=== PATIENT | female | born 1975 | race Caucasian/White ===

== ENCOUNTER 2016-08-31 17:34 | Emergency (ER) | payer BC, OTHER ==
[2016-08-31] MEDS ORDERED: METOCLOPRAMIDE HCL 5 MG/ML VIAL IM ONE (18:12)
[2016-08-31] MEDS ORDERED: diphenhydrAMINE HCL 50 MG/ML VIAL IM ONE (18:12)
[2016-08-31] MEDS ORDERED: METOCLOPRAMIDE HCL 5 MG/ML VIAL ONE (18:14)
[2016-08-31] MEDS ORDERED: diphenhydrAMINE HCL 50 MG/ML VIAL ONE (18:14)
--- NOTE | 2016-08-31 18:19 | ERNOTE ---
Headache ER HPI - General Presenting Symptoms: "migraine" Time Seen by Provider: 08/31/16 18:05 Source: patient Exam Limitations: no limitations - Immun/Allergies/Home Medications Immunizations: IMMUNIZATION HX Immunizations Up to Date Yes Allergies/Adverse Reactions: Allergies aspirin Allergy (Verified 08/31/16 17:50) latex Allergy (Verified 08/31/16 17:50) propranolol Allergy (Verified 08/31/16 17:50) topiramate Allergy (Verified 08/31/16 17:50) - History of Present Illness Narrative: Patient gets migraine headaches about twice a month, she usually treats them with a triptan and phenergan. A couple of times a year they get so bad that she has to get medical attention. This one started at 02:00, is severe, left sided and feels exactly like her migraines. Home medication did not give her any relieve, dry heaving Date (Duration): 08/31/16 Time (Timing): 02:00 Timing of Headache: constant Context Headache: Absent: recent head injury < 24 hrs ago Quality: Present: throbbing Severity Maximum: Present: severe Severity-Currently: Present: severe Headache frequency: Present: frequent headaches, similar to previous headache Modifying Factors - (Improves): Reports: other - nothing Modifying Factors - (Worsens): Reports: movement, exposure to light Associated Symptoms: Reports: denies symptoms Exacerbated by:: Reports: light, noise, movement Prior Treament: Reports: similar symptoms before Review of Systems - Review of Systems Constitutional: Absent: recent illness, fever EYE: Absent: double vision, vision changes ENT: Absent: sore throat Respiratory: Absent: shortness of breath, cough Cardiology: Absent: chest pain Gastrointestinal/Abdominal: Present: nausea. Absent: vomiting, diarrhea, abdominal pain Genitourinary: Present: no symptoms reported Skin: Absent: rash Neurological: Present: headache. Absent: weakness, numbness - Patient's Past Medical History Patient History - Medical: Migraines Patient History - Cardiac/Respiratory: No pertinent hx Patient History - Cancer: No Hx of Cancer Patient History - Surgical Procedures: Patient History - Other: None LMP (females 10-50): other - Social History Living Situations: home Psych History: No pertinent hx Smoking Status: Never smoker - Immunizations Immunizations Up to Date: Yes Physical Exam - Physical Exam General Appearance: Present: wd/wn, alert, mild distress Eye Exam: Normal inspection: bilateral, PERRL: bilateral Ears, Nose, Throat: Present: normal pharynx Neck: Present: normal inspection, nontender, supple, full range of motion Respiratory: Present: no respiratory distress, normal breath sounds, lungs clear Cardiovascular/Chest: Present: regular rate, rhythm, no murmur Gastrointestinal/Abdominal: Present: nontender Neurological Exam: Present: alert, oriented, normal mood/affect, no motor/ sensory deficits Skin Exam: Present: normal color, warm/dry ED Progress - Vital Signs Patient's Vital Signs:: I have reviewed the patient's vital signs. Vital Signs: Vital Signs 08/31/16 17:47 Temperature 37.1 C Pulse Rate 79 Respiratory 16 Rate Blood Pressure 142/95 O2 Sat by Pulse 100 Oximetry - Progress/Reassessment Chief Complaint: Headache Progress Note-Subjective: 08/31/16 18:50 pain down to 7/10 08/31/16 19:05 pain better 5/10, sitting up, ready to go home Departure Clinical Impression: Migraine Qualifiers: Migraine type: unspecified Status migrainosus presence: without status migrainosus Intractability: not intractable Qualified Code(s): G43.909 - Migraine, unspecified, not intractable, without status migrainosus - Departure Disposition: Home self-care Condition: Good Instructions: Recurrent Migraine Headache, [id number] Referrals: Abbey Person FNP [Primary Care Provider] -
--- OUTSIDE RECORDS SUMMARY | 2016-08-31 18:22 | XMS REPORT | CCD ---
:1975 Author Name FRANCK ROSARIO Address [address] [facility] Unavailable [place], [place] [id number] Care Team Providers Name Role Phone YULIYA EDUARDO Attending Physician Unavailable Vital Signs Unknown. Allergies Allergy Code Allergy Type Reaction Status ASPIRIN 0 Drug allergy (disorder) DYSPNEA Active Procedures Unknown. History of Immunizations Unknown. Problems Unknown. Results Unknown. Medications Unknown. Medications Administered Unknown. Encounters Encounter Diagnosis Diagnosis Code Start Date HEADACHE 7840 11/18/2013 Social History Smoking Status Code Start Date End Date Never smoker [id number] Patient Decision Aids Unknown. Discharge Instructions You were admitted to [facility] on 11/18/2013 with a principle diagnosis of HEADACHE. You had the following procedures done:C.A.T. SCAN OF HEAD You were discharged from [facility] on 11/18/2013. Should you have any questions prior to discharge, please contact a member of your healthcare team. If you have left the hospital and have any questions, please contact your primary care physician. Chief Complaint and Reason For Visit Unknown. Function Status Unknown. Plan of Care Unknown. Referral/Transition of Care Unknown.
--- OUTSIDE RECORDS SUMMARY | 2016-08-31 18:23 | XMS REPORT | CCD ---
:1975 Author Name RAUL ISIDRO Address [address] [facility] Unavailable [place], [place] [id number] Care Team Providers Name Role Phone MERARI TORRES Attending Physician Unavailable MERARI TORRES Er Physician 1 Unavailable NELLIE Perdomo Registered Nurse Unavailable YAO Hassan Registered Nurse Unavailable Vital Signs Vital Sign Value Unit Date/Time Recent/Initial? Weight Measured 153 lbs 11/15/2013 17:41 Initial VS Height 65 in 11/15/2013 17:41 Initial VS BMI (Body Mass Index) 25.46 kg/m^2 11/15/2013 17:41 Initial VS BSA (Body Surface Area) 1.78 m^2 11/15/2013 17:41 Initial VS Allergies Allergy Code Allergy Type Reaction Status ASPIRIN 0 Drug allergy (disorder) DYSPNEA Active Procedures Unknown. History of Immunizations Unknown. Problems Unknown. Results Unknown. Medications Medication Code Dose Units Frequency Route Modification Start Stop Date/Time Date/Time RELAPAX 0 2 TABLET NEEDED Topamax 25MG 127314 50 MILLIGRAMS BEFORE BED ORAL Oral Tablet Xanax 0.25MG 678276 0.25 MILLIGRAMS THREE TIMES ORAL Oral Tablet A DAY Medications Administered Unknown. Encounters Encounter Diagnosis Diagnosis Code Start Date MIGRNE UNSPEC W O MEN INTRCT MIGRNE 34190 11/15/2013 Social History Smoking Status Code Start Date End Date Never smoker [id number] Patient Decision Aids Unknown. Discharge Instructions You were admitted to [facility] on 11/15/2013 with a principle diagnosis of MIGRNE UNSPEC W O MEN INTRCT MIGRNE. You had the following procedures done:INJECT INFUSE NECINJECT INFUSE NEC You were discharged from [facility] on 11/15/2013. Should you have any questions prior to discharge, please contact a member of your healthcare team. If you have left the hospital and have any questions, please contact your primary care physician. Chief Complaint and Reason For Visit Chief Complaint Date of Onset MIGRAINE Function Status Unknown. Plan of Care Unknown. Referral/Transition of Care Unknown.
[2016-08-31 19:19] VITALS: BP 122/92
== END 2016-08-31 19:07 | disposition home or self-care (01) ==
LOC: ER 17:34
DX: G43.909 Migraine, unspecified, not intractable, without status migrainosus (principal)